=== PATIENT | male | born 1975 | race African-American/Black ===

== ENCOUNTER 2019-08-21 21:35 | Emergency (ER) | payer SELFPAY ==
[~2019-08-21] VITALS: Ht 180.3 cm; Wt 90.0 kg
[2019-08-21] MEDS ORDERED: SODIUM CHLORIDE 0.9% 1,000 ML IV ONE (22:41)
[2019-08-21] MEDS ORDERED: ONDANSETRON HCL 4MG/2ML INJ IV STA (22:41)
[2019-08-21] MEDS ORDERED: BACITRACIN ZINC OINT UDPKT TOP ONE (22:45)
[2019-08-21] MEDS ORDERED: TETANUS, DIPHTHERIA, PERTUSSIS VAC/PF 0.5ML (>7YR OLD) IM ONE (22:45)
[2019-08-21] MEDS ORDERED: LIDOCAINE HCL/EPINEPHRINE 1%-EPI 1:100,000 20 ML VIAL INFIL ONE (22:45)
[2019-08-21 22:57] LABS: BASOPHILS % 0.7 % (0.0-2.0); CHLORIDE 107 mEq/L (98-107); HEMATOCRIT. 44.8 % (42.0-52.0); HEMOGLOBIN. 14.9 g/dL (14.0-18.0); LYMPHOCYTES % 37.3 % (20.0-50.0); MEAN CORPUSCULAR HEMOGLOBIN 31.3 pg (28.0-32.0); MEAN CORPUSCULAR VOLUME 94.1 fL (80.0-94.0); MEAN PLATELET VOLUME 9.9 fl (7.4-10.4); MONOCYTES % 5.2 % (2.0-8.0); NEUTROPHILS % 55.8 % (40.0-76.0); PLATELET 235 x1000/uL (130-400); RED BLOOD CELL COUNT 4.76 mill/uL (4.7-6.1); RED CELL DISTRIBUTION WIDTH 13.6 % (11.6-14.6)
[2019-08-21 23:01] LABS: ETHANOL BLOOD 25 mg/dL
[2019-08-22 00:06] LABS: *AMPHETAMINES SCREEN URINE NEGATIVE (NEGATIVE); *BARBITURATES SCREEN URINE NEGATIVE (NEGATIVE); *BENZODIAZEPINES SCREEN URINE NEGATIVE (NEGATIVE); *COCAINE SCREEN URINE NEGATIVE (NEGATIVE); METHADONE URINE SCREEN NEGATIVE (NEGATIVE); OPIATES URINE SCREEN NEGATIVE (NEGATIVE)
[2019-08-22 00:07] LABS: CANNABINOID URINE SCREEN PRESUMTIVE POSITIVE (NEGATIVE); PHENCYCLIDINE URINE SCREEN PRESUMTIVE POSITIVE (NEGATIVE)
[2019-08-22 02:04] VITALS: BP 108/70
== END 2019-08-22 02:05 | disposition home or self-care (01) ==
LOC: ER 21:35
DX: S01.01XA Laceration without foreign body of scalp, initial encounter (principal); T40.7X1A Poisoning by cannabis (derivatives), accidental (unintentional), initial encounter; R55 Syncope and collapse; F17.210 Nicotine dependence, cigarettes, uncomplicated; Z71.6 Tobacco abuse counseling; W01.0XXA Fall on same level from slipping, tripping and stumbling without subsequent striking against object, initial encounter; Y93.89 Activity, other specified; Y92.89 Other specified places as the place of occurrence of the external cause
CPT/HCPCS: 12002; 36415; 70450; 71045; 72125; 80053; 80305; 80320; 84484; 85025; 90471; 90715; 93005; 96374; 99285; 99406; J2405; J3490; J7030; G0480

== ENCOUNTER 2019-08-26 14:20 | Emergency (ER) | payer MEDICAID ==
[~2019-08-26] VITALS: Ht 172.7 cm; Wt 87.0 kg
[2019-08-26 14:29] VITALS: BP 153/101
[2019-08-26] MEDS ORDERED: BACITRACIN ZINC OINT UDPKT TOP ONE (15:00)
[2019-08-26] MEDS ORDERED: CEPHALEXIN 250MG CAPSULE PO ONE (15:30)
== END 2019-08-26 15:37 | disposition home or self-care (01) ==
LOC: ER 14:40
DX: Z48.00 Encounter for change or removal of nonsurgical wound dressing (principal)
CPT/HCPCS: 99283

== ENCOUNTER 2019-09-04 13:02 | Emergency (ER) | payer MEDICAID ==
[~2019-09-04] VITALS: Ht 172.7 cm; Wt 82.0 kg
[2019-09-04 13:26] VITALS: BP 124/74
== END 2019-09-04 15:22 | disposition home or self-care (01) ==
LOC: ER 13:40
DX: S01.01XD Laceration without foreign body of scalp, subsequent encounter (principal); X58.XXXD Exposure to other specified factors, subsequent encounter; Z48.02 Encounter for removal of sutures
CPT/HCPCS: 99281

== ENCOUNTER 2023-05-28 16:07 | Emergency (ER) | payer MEDICAID, OTHER ==
[~2023-05-28] VITALS: Ht 172.7 cm; Wt 77.0 kg
[2023-05-28 16:13] VITALS: BP 135/90; PULSE 86; RESP 18; TEMP 98.5; O2SAT 100
== END 2023-05-28 22:44 | disposition home or self-care (01) ==
LOC: ER 16:07
DX: M79.642 Pain in left hand (principal); V19.9XXA Pedal cyclist (driver) (passenger) injured in unspecified traffic accident, initial encounter; Y93.89 Activity, other specified; Y92.89 Other specified places as the place of occurrence of the external cause; Y99.8 Other external cause status
CPT/HCPCS: 73130; 99283